=== PATIENT | female | born 1975 | race Two or more races ===

== ENCOUNTER 2021-05-14 18:07 | Emergency (ER) | payer SELFPAY ==
[~2021-05-14] VITALS: Ht 154.9 cm; Wt 56.7 kg
[2021-05-14 18:08] VITALS: BP 114/75
[2021-05-14] MEDS ORDERED: LORazepam 0.5 MG TAB PO ONE (19:00)
== END 2021-05-14 22:00 | disposition home or self-care (01) ==
LOC: ER 18:07
DX: F41.9 Anxiety disorder, unspecified (principal); Z88.6 Allergy status to analgesic agent; Z88.2 Allergy status to sulfonamides; Z88.1 Allergy status to other antibiotic agents; Z88.8 Allergy status to other drugs, medicaments and biological substances